=== PATIENT | female | born 1990 | race Two or more races ===

== ENCOUNTER 2021-01-03 23:00 | Inpatient (IN) | payer OTHER ==
[2021-01-03] MEDS ORDERED: BUTORPHANOL TARTRATE 1 MG/ML VIAL IVPB PRN (23:57)
[2021-01-03] MEDS ORDERED: PROMETHAZINE HCL 25 MG/1 ML VIAL IVPUSH ONE (23:57)
[2021-01-04] MEDS ORDERED: ELECTROLYTE-148 SOLN 1,000 ML IV SCH ×2 (00:15→19:15)
[2021-01-04] MEDS ORDERED: diphenhydrAMINE HCL 25 MG CAPSULE (FP) PO PRN (00:25)
[2021-01-04] MEDS: ELECTROLYTE-148 SOLN 1,000 ML IV SCH ×3 (00:40→17:00)
[2021-01-04 00:53] LABS: BASO % 0.3 % (0-2.0); HEMATOCRIT 31.8 % (32.4-45.2); HEMOGLOBIN 10.3 GM/dL (10.7-15.3); LYMPH % 4.3 % (8-40); MCH 26.9 pg (25.7-33.7); MCHC 32.4 g/dl (32.0-36.0); MEAN CELL VOLUME 83.1 fl (80-96); MEAN PLT VOLUME 9.7 fl (7.5-11.1); MONO % 3.2 % (3.8-10.2); NEUT % 92.2 % (42.8-82.8); PLATELET COUNT 225 K/MM3 (134-434); RBC 3.82 M/mm3 (3.60-5.2); RDW 15.1 % (11.6-15.6); WHITE BLOOD COUNT 10.5 K/mm3 (4.0-10.0)
[2021-01-04] MEDS ORDERED: BUTORPHANOL TARTRATE 2 MG/ML VIAL ONE ×2 (00:58→09:17)
[2021-01-04] MEDS ORDERED: PROMETHAZINE HCL 25 MG/1 ML VIAL ONE ×2 (00:58→09:17)
[2021-01-04 01:04] LABS: INR 0.96 (0.83-1.09); PROTHROMBIN TIME (PATIENT) 11.8 SEC (9.7-13.0)
[2021-01-04 01:07] LABS: ACTIVATED PTT 25.5 SECONDS (25.2-36.5)
[2021-01-04 01:17] LABS: BLOOD UREA NITROGEN 11.7 mg/dL (7-18); CALCIUM 8.7 mg/dL (8.5-10.1)
[2021-01-04 01:22] LABS: CREATININE 0.7 mg/dL (0.55-1.3)
[2021-01-04 01:49] VITALS: BMI 29.7
[2021-01-04 02:15] LABS: HIV INTERPRETATION NEGATIVE (NEGATIVE)
[2021-01-04 04:34] LABS: ANISOCYTOSIS 1+; MACROCYTOSIS 1+; PLATELET ESTIMATE NORMAL
[2021-01-04] MEDS ORDERED: CLINDAMYCIN 900 MG PREMIX IVPB 900 MG/50 ML BAG IVPB SCH (08:30)
[2021-01-04] MEDS ORDERED: PROMETHAZINE HCL 25 MG/1 ML VIAL IVPB ONE (09:15)
[2021-01-04] MEDS ORDERED: BUTORPHANOL TARTRATE 2 MG/ML VIAL IVPB ONE (09:15)
[2021-01-04] MEDS ORDERED: OXYTOCIN 30 UNITS in 0.9% NS 30 UNIT/500 ML INFUS.BAG IVPB SCH (14:45)
[2021-01-04] MEDS ORDERED: OXYTOCIN 30 UNITS in 0.9% NS 30 UNIT/500 ML INFUS.BAG IVPB ONE (14:46)
[2021-01-04] MEDS ORDERED: PCA PUMP NR ONE ×2 (14:54→19:36)
[2021-01-04] MEDS ORDERED: FENTANYL/BUPIVACAINE/NS/PF - PCEA - 50 ML DISP.SYRIN EP ONE (14:55)
[2021-01-04] MEDS ORDERED: BUPIVACAINE HCL/PF 0.25% (2.5MG/ML) 10 ML VIAL ONE ×2 (15:03→17:24)
[2021-01-04] MEDS: FENTANYL/BUPIVACAINE/NS/PF - PCEA - 50 ML DISP.SYRIN EP SCH (15:40)
[2021-01-04] MEDS ORDERED: NALOXONE HCL 0.4 MG/ML VIAL IVPUSH PRN (15:50)
[2021-01-04] MEDS ORDERED: LIDOCAINE HCL 1% PRESERVATIVE FREE - 30ML VIAL ONE (16:18)
[2021-01-04] MEDS ORDERED: OXYTOCIN 20 UNITS in 0.9% NS 20 UNIT/1,000 ML INFUS.BAG IV ONE ×2 (16:56→22:38)
[2021-01-04] MEDS ORDERED: CITRIC ACID/SODIUM CITRATE 30 ML UNIT-DOSE CUP PO ONE (19:15)
[2021-01-04] MEDS ORDERED: LIDO 2%/EPI 1:200000 PRESRVFRE (20 ML SDVIAL) ONE (19:30)
[2021-01-04] MEDS ORDERED: METHYLERGONOVINE MALEATE 0.2 MG/1 ML AMP IM PRN (19:36)
[2021-01-04] MEDS ORDERED: IBUPROFEN 800 MG/8 ML IJ IVPB PRN (19:36)
[2021-01-04] MEDS ORDERED: OXYTOCIN 20 UNITS in 0.9% NS 20 UNIT/1,000 ML INFUS.BAG IV SCH (19:45)
[2021-01-04] MEDS ORDERED: morphine SULFATE/PF 0.5 MG/ML (2cc Syringe - QUVA) ONE ×2 (20:06)
[2021-01-04] MEDS ORDERED: KETOROLAC TROMETHAMINE 30 MG/1 ML VIAL ONE (20:24)
[2021-01-04 21:38] LABS: CORD BASE EXCESS -3.7 mmol/L (0-2); CORD PCO2 47.3 mmHg (30-78); CORD pH 7.304 (7.14-7.44)
[2021-01-04 21:39] LABS: CORD PCO2 51.1 mmHg (30-78); CORD pH 7.271 (7.14-7.44)
[2021-01-05] MEDS ORDERED: oxyCODONE HCL 5 MG TABLET PO PRN (08:36)
[2021-01-05 08:38] LABS: BASO % 0.2 % (0-2.0); HEMATOCRIT 26.1 % (32.4-45.2); HEMOGLOBIN 8.7 GM/dL (10.7-15.3); LYMPH % 11.8 % (8-40); MCH 27.5 pg (25.7-33.7); MCHC 33.3 g/dl (32.0-36.0); MEAN CELL VOLUME 82.5 fl (80-96); MEAN PLT VOLUME 9.6 fl (7.5-11.1); MONO % 9.7 % (3.8-10.2); NEUT % 78.3 % (42.8-82.8); PLATELET COUNT 171 K/MM3 (134-434); RBC 3.17 M/mm3 (3.60-5.2); RDW 14.9 % (11.6-15.6); WHITE BLOOD COUNT 7.8 K/mm3 (4.0-10.0)
[2021-01-05] MEDS: SIMETHICONE 80 MG TAB.CHEW (FP) PO PRN ×2 (11:39→20:34)
[2021-01-05] MEDS: IBUPROFEN 600 MG TABLET (FP) PO PRN ×2 (11:39→20:35)
[2021-01-05] MEDS: oxyCODONE HCL 5 MG TABLET PO PRN ×2 (11:40→20:34)
[2021-01-05] MEDS ORDERED: BISACODYL 10 MG SUPP.RECT RC PRN (19:36)
[2021-01-05] MEDS: ACETAMINOPHEN 325 MG TABLET (FP) PO PRN (20:35)
[2021-01-06] MEDS: IBUPROFEN 600 MG TABLET (FP) PO PRN (09:54)
[2021-01-06] MEDS: ACETAMINOPHEN 325 MG TABLET (FP) PO PRN (09:55)
[2021-01-06] MEDS: PRENATAL VITAMINS W/ FOLIC ACID TABLET (FP) PO SCH (09:56)
[2021-01-06 21:14] VITALS: PULSE 81
[2021-01-06] MEDS: FENTANYL/BUPIVACAINE/NS/PF - PCEA - 50 ML DISP.SYRIN EP SCH ×2 (21:45→21:46)
[2021-01-07 08:30] LABS: BASO % 0.7 % (0-2.0); EOS % 0.8 % (0-4.5); HEMATOCRIT 26.6 % (32.4-45.2); HEMOGLOBIN 8.9 GM/dL (10.7-15.3); LYMPH % 20.9 % (8-40); MCH 27.6 pg (25.7-33.7); MCHC 33.5 g/dl (32.0-36.0); MEAN CELL VOLUME 82.4 fl (80-96); MEAN PLT VOLUME 9.9 fl (7.5-11.1); MONO % 6.5 % (3.8-10.2); NEUT % 71.1 % (42.8-82.8); PLATELET COUNT 177 K/MM3 (134-434); RBC 3.23 M/mm3 (3.60-5.2); RDW 15.1 % (11.6-15.6); WHITE BLOOD COUNT 5.6 K/mm3 (4.0-10.0)
[2021-01-07] MEDS: PRENATAL VITAMINS W/ FOLIC ACID TABLET (FP) PO SCH (09:11)
[2021-01-07 09:25] VITALS: BP 108/74; TEMP 98.1
[2021-01-08 11:22] LABS: POC NITRAZINE NEG
== END 2021-01-07 13:10 | disposition home or self-care (01) | DRG 787 ==
LOC: JDEL 23:00 → JLDR 23:59 → J3W 01-04 23:52
PROVIDERS: ADMIT Obstetrics & Gynecology; ATTEND Obstetrics & Gynecology
PROC: 10D00Z1 Extraction of Products of Conception, Low, Open Approach (ICD-10-PCS; principal; 2021-01-04)
DX: O76 Abnormality in fetal heart rate and rhythm complicating labor and delivery (principal); O47.1 False labor at or after 37 completed weeks of gestation; Z3A.39 39 weeks gestation of pregnancy; Z37.0 Single live birth
CPT/HCPCS: 36415; 36600; 80048; 82803; 83986-QW; 85025; 85610; 85730; 86780; 86850; 86900; 86901; 87389; 88307-TC; C9803; U0003; U0005